=== PATIENT | male | born 1995 | race Caucasian/White ===

== ENCOUNTER 2021-08-09 19:16 | Emergency (ER) | payer BC ==
[~2021-08-09] VITALS: Ht 188 cm; Wt 81.6 kg
--- NOTE | 2021-08-09 19:55 | NUR ---
pt bibself c/o needing medical clearance for his sober living s/p "becoming unresponsive" during acupuncture. Pt aaox4 breathing evenly and unlabored. Per pt he has hx of sleep paralysis and fell asleep during acupunture and was unable to wake up quickly. Per pt, his sober living needed blood work done in order to allow him to return. Pt attached to monitor and pox. MD at bedside for eval. Will continue to monitor.
--- NOTE | 2021-08-09 21:05 | NUR ---
Patient discharged to home in stable condition. Written and verbal after care instructions given. Patient verbalizes understanding of instruction. Pt ambulatory with a steady gait
[2021-08-09 21:07] LABS: BASOPHILS % (AUTO) 0.4 % (0.0-2.0); HEMATOCRIT 41 % (39-51); HEMOGLOBIN 13.2 g/dL (13.5-17.5); LYMPHOCYTES # (AUTO) 2.9 K/uL (0.8-4.8); LYMPHOCYTES % (AUTO) 54.7 % (20.0-44.0); MEAN CORPUSCULAR HGB CONC 32 g/dl (31.0-36.0); MEAN CORPUSCULAR VOLUME 80 fL (80-96); MONOCYTES # (AUTO) 0.5 K/uL (0.1-1.30); MONOCYTES % (AUTO) 10.1 % (2.0-12.0); NEUTROPHILS # (AUTO) 1.7 K/uL (1.8-8.9); NEUTROPHILS % (AUTO) 31.8 % (43.0-81.0); PLATELET COUNT (AUTO) 315 K/uL (150-450); RED BLOOD CELL COUNT(AUTO) 5.07 MIL/uL (4.5-6.0); WHITE BLOOD COUNT (AUTO) 5.3 K/uL (4.3-11.0)
[2021-08-09 21:53] LABS: CALCIUM, SERUM 8.9 mg/dL (8.5-10.1); CREATININE 1.1 mg/dL (0.6-1.3); POTASSIUM 4.3 mmol/L (3.5-5.1)
[2021-08-09 21:59] LABS: ALBUMIN 4.3 g/dL (3.4-5.0); BILIRUBIN,TOTAL 0.2 mg/dL (0.2-1.0); TOTAL PROTEIN, SERUM 8.2 g/dL (6.4-8.2)
[2021-08-10 01:26] VITALS: BP 129/66
== END 2021-08-09 21:05 | disposition home or self-care (01) ==
LOC: ER 19:32
DX: Z02.89 Encounter for other administrative examinations (principal); Z98.890 Other specified postprocedural states
CPT/HCPCS: 36415; 80048-TC; 80076-TC; 85025-TC; G0480

== ENCOUNTER 2022-05-15 19:43 | Inpatient (IN) | payer BC ==
[~2022-05-15] VITALS: Ht 188 cm; Wt 70.8 kg
--- NOTE | 2022-05-15 19:56 | NUR ---
PATIENT GALLO 62 FROM A [facility] FOR METH USE. PATIENT IS A/O X 2-3, RR LABORED, NO SOB NOTED. PATIENT TAKEN TO ER BED 13. PATIENT PLACED IN CARDIAC AND POX MONITORS. SITTER AT BEDSIDE. WILL CONTINUE TO MONITOR.
--- NOTE | 2022-05-15 19:57 | NUR ---
[facility] AT PT'S BEDSIDE
[2022-05-15] MEDS ORDERED: LORAZEPAM INJ 2 MG/ML VIAL IM ONE (20:00)
[2022-05-15] MEDS ORDERED: LORAZEPAM INJ 2 MG/ML VIAL ONE (20:07)
--- NOTE | 2022-05-15 20:20 | NUR ---
LAB AT BEDSIDE
[2022-05-15 20:25] LABS: BASOPHILS % (AUTO) 0.1 % (0.0-2.0); HEMATOCRIT 39 % (39-51); HEMOGLOBIN 12.8 g/dL (13.5-17.5); LYMPHOCYTES # (AUTO) 1.6 K/uL (0.8-4.8); LYMPHOCYTES % (AUTO) 14.2 % (20.0-44.0); MEAN CORPUSCULAR HGB CONC 33 g/dl (31.0-36.0); MEAN CORPUSCULAR VOLUME 77 fL (80-96); MONOCYTES % (AUTO) 8.7 % (2.0-12.0); NEUTROPHILS # (AUTO) 8.5 K/uL (1.8-8.9); PLATELET COUNT (AUTO) 234 K/uL (150-450); RED BLOOD CELL COUNT(AUTO) 5.12 MIL/uL (4.5-6.0)
[2022-05-15 20:40] LABS: CALCIUM, SERUM 9.7 mg/dL (8.5-10.1); CARBON DIOXIDE 18 mmol/L (21-32); CHLORIDE 100 mmol/L (98-107); CREATININE 2.7 mg/dL (0.6-1.3); GLUCOSE 128 mg/dL (74-106); POTASSIUM 4.3 mmol/L (3.5-5.1); SODIUM SERUM 139 mmol/L (136-145); UREA NITROGEN, BLOOD 46 mg/dL (7-18)
[2022-05-15 20:46] LABS: ALANINE AMINOTRANSFERASE 28 U/L (12-78); ALBUMIN 4.9 g/dL (3.4-5.0); ALKALINE PHOSPHATASE 92 U/L (46-116); ASPARTATE AMINOTRANSFERASE 33 U/L (15-37); BILIRUBIN,DIRECT 0.2 mg/dL (0.0-0.2); TOTAL PROTEIN, SERUM 9.1 g/dL (6.4-8.2)
[2022-05-15 20:47] LABS: ACETAMINOPHEN < 2 ug/ml (10-30); ALCOHOL, BLOOD < 3 mg/dL (0-0)
--- NOTE | 2022-05-15 21:21 | NUR ---
NO URINE OUTPUT; WILL TRY AGAIN LATER
[2022-05-16] MEDS ORDERED: IV NS 0.9% 1,000 ML IV ONE (01:00)
[2022-05-16] MEDS ORDERED: LORAZEPAM INJ 2 MG/ML VIAL IM ONE (01:00)
[2022-05-16] MEDS ORDERED: HALOPERIDOL LACTATE INJ 5 MG/ML VIAL IM ONE (01:00)
[2022-05-16] MEDS ORDERED: diphenhydrAMINE HCL 50 MG/ML VIAL IM ONE (01:00)
[2022-05-16] MEDS ORDERED: LORAZEPAM INJ 2 MG/ML VIAL ONE (01:03)
[2022-05-16] MEDS ORDERED: diphenhydrAMINE HCL 50 MG/ML VIAL ONE (01:03)
[2022-05-16] MEDS ORDERED: HALOPERIDOL LACTATE INJ 5 MG/ML VIAL ONE (01:03)
[2022-05-16] MEDS ORDERED: ONDANSETRON HCL/PF 4 MG/2 ML VIAL IVP PRN (01:30)
[2022-05-16] MEDS ORDERED: TEMAZEPAM 15 MG CAPSULE PO PRN (01:30)
[2022-05-16] MEDS ORDERED: MORPHINE SULFATE INJ 2 MG/ML DISP.SYRIN IV PRN (01:30)
[2022-05-16] MEDS ORDERED: HYDROCODONE/APAP 5/325MG TABLET PO PRN (01:30)
[2022-05-16] MEDS ORDERED: ACETAMINOPHEN 325 MG TABLET PO PRN (01:30)
[2022-05-16] MEDS ORDERED: MAGNESIUM HYDROXIDE 30 ML UDC PO PRN (01:30)
[2022-05-16] MEDS ORDERED: Z GUARD REMEDY 4 OZ OINT TP PRN (01:30)
[2022-05-16] MEDS ORDERED: MAG HYDROX/AL HYDROX/SIMETH 30 ML UDC PO PRN (01:30)
--- NOTE | 2022-05-16 02:58 | NUR ---
URINE COLLECTED AND SENT TO LAB.
[2022-05-16 03:40] LABS: BILIRUBIN,URINE SMALL (NEGATIVE); COLOR,URINE YELLOW (YELLOW); LEUKOCYTE ESTERASE ,URINE NEGATIVE (NEGATIVE); NITRITE, URINE NEGATIVE (NEGATIVE); PH,URINE 5.5 (5.0-8.0); PROTEIN,URINE NEGATIVE (NEGATIVE); UGLUCOSE NEGATIVE (NEGATIVE); UROBILINOGEN,URINE 0.2 EU/dL (0.2)
--- NOTE | 2022-05-16 06:32 | NUR ---
[facility] SWAB COLLECTED AND SENT TO LAB. PATIENT'S BELONGINGS LIST DONE.
--- NOTE | 2022-05-16 06:33 | NUR ---
REPORT GIVEN TO CHARGE NURSE
--- NOTE | 2022-05-16 07:23 | NUR ---
PATIENT TRANSFERRED UNDER ACLS
--- NOTE | 2022-05-16 07:25 | NUR ---
RN NOTES RECEIVED PATIENT FROM EMERGENCY DEPT. TRANSFERRED VIA GURNEY. ON RA WITH O2 SAT OF 99%. VSS. SKIN CLEAR AND INTACT. R AC G#20 INTACT AND PATENT. PATIENT SLEEPING AT THIS TIME, RESPONDS TO VERBAL AND TACTILE STIMULI. A/O X3 IN AND OUT OF SLEEP. NO COMPLAINT OF PAIN VERBALIZED AT THIS TIME. SAFETY AND ASPIRATION PRECAUTIONS IN PLACE. CALL LIGHT WITHIN REACH. WILL CONTINUE TO MONITOR PATIENT.
[2022-05-16] MEDS: PANTOPRAZOLE 40 MG TABLET.DR PO SCH (07:30)
--- NOTE | 2022-05-16 08:15 | NUR ---
RN NOTES PATIENT IN AND OUT OF SLEEP. UNABLE TO TAKE PO MEDICATION AT THIS TIME. WILL CONTINUE TO MONITOR
[2022-05-16 09:30] VITALS: BP_SYST 114; BP_SYST 130; BP_DIAS 78; BP_DIAS 89
[2022-05-16] MEDS: IV NS 0.9% 1,000 ML IV PRN ×2 (10:57→18:59)
[2022-05-16 16:00] VITALS: BP 138/87
[2022-05-16] MEDS: LORAZEPAM INJ 2 MG/ML VIAL IV PRN (16:30)
--- NOTE | 2022-05-16 18:50 | NUR ---
RN NOTES PATIENT IN BED, AWAKE. A/O X3. NO COMPLAINTS AT THIS TIME. ON RA WITH NO S/SX OF RESP DISTRESS NOTED. R AC G#20 INTACT AND PATENT WITH NS FLUID RUNNING AT 125ML/HR. SAFETY PRECAUTIONS MAINTAINED. ALL ORDERS CARRIED OUT AND MEDS GIVEN. WILL ENDORSE TO THE OPERATIONS ARCHITECT NURSE FOR [facility]ENDY
--- NOTE | 2022-05-16 19:47 | NUR ---
MS RN OPENING NOTE RECEIVED PATIENT IN BED, A/OX3-4. NO S/S OF APPARENT DISTRESS IN ROOM AIR. NO C/O PAIN AT THIS TIME. IV NS RUNNING @125MLS/HR. ORIENTED AND ENCOURAGED WITHE THE USE OF CALL LIGHT. SAFETY IN PLACE. WILL CONTINUE WITH PLAN OF CARE FOR PATIENT.
[2022-05-16 20:00] VITALS: BP 123/78
[2022-05-17] MEDS: LORAZEPAM INJ 2 MG/ML VIAL IV PRN ×2 (03:04→09:10)
[2022-05-17] MEDS: IV NS 0.9% 1,000 ML IV PRN (05:36)
[2022-05-17 06:32] LABS: BASOPHILS % (AUTO) 0.2 % (0.0-2.0); HEMATOCRIT 32 % (39-51); HEMOGLOBIN 10.7 g/dL (13.5-17.5); LYMPHOCYTES # (AUTO) 1.8 K/uL (0.8-4.8); LYMPHOCYTES % (AUTO) 38.4 % (20.0-44.0); MEAN CORPUSCULAR HGB CONC 34 g/dl (31.0-36.0); MEAN CORPUSCULAR VOLUME 76 fL (80-96); MONOCYTES # (AUTO) 0.6 K/uL (0.1-1.30); MONOCYTES % (AUTO) 13.3 % (2.0-12.0); NEUTROPHILS # (AUTO) 2.1 K/uL (1.8-8.9); NEUTROPHILS % (AUTO) 46.1 % (43.0-81.0); PLATELET COUNT (AUTO) 151 K/uL (150-450); RED BLOOD CELL COUNT(AUTO) 4.18 MIL/uL (4.5-6.0); WHITE BLOOD COUNT (AUTO) 4.6 K/uL (4.3-11.0)
--- NOTE | 2022-05-17 06:42 | NUR ---
MS RN CLOSING NOTE PATIENT IN BED WITH EYES CLOSED, EASY TO AROUSE. NO S/S OF APPARENT DISTRESS IN ROOM AIR. NO C/O PAIN AT THIS TIME. IV NS RUNNING @125MLS/HR. NEEDS ATTENDED. SAFETY KEPT IN PLACE THE WHOLE SHIFT. WILL ENDORSE TO MORNING SHIFT RN FOR CONTINUITY OF CARE.
[2022-05-17] MEDS: PANTOPRAZOLE 40 MG TABLET.DR PO SCH (07:52)
[2022-05-17 08:00] VITALS: BP 135/80
[2022-05-17 09:00] LABS: CALCIUM, SERUM 8.5 mg/dL (8.5-10.1); CREATININE 0.7 mg/dL (0.6-1.3); PHOSPHORUS 2.2 mg/dL (2.5-4.9); POTASSIUM 4.1 mmol/L (3.5-5.1)
--- NOTE | 2022-05-17 14:26 | NUR ---
PATIENT A/O X3. ABLE TO MAKE NEEDS KNOWN. ON ROOM AIR SATURATING WELL. PATIENT IS CLEARED FOR DISCHARGE. ID WRISTBAND AND IV ACCESS WERE REMOVED. DISCHARGE INSTRUCTIONS AND HEALTH TEACHINGS GIVEN, PT VERBALIZES UNDERSTANDING. HE IS GOING TO [facility]. PICKED UP BY THE FACILITY PERSONNEL. VAPE WAS HANDED TO THE PATIENT.
== END 2022-05-17 14:56 | disposition home or self-care (01) | DRG 682 ==
LOC: ER 19:44 → TRANSITION 05-16 03:51 → MED 05-16 05:52
PROVIDERS: ADMIT Nurse Practitioner Acute Care; ATTEND Nurse Practitioner Acute Care
DX: N17.0 Acute kidney failure with tubular necrosis (principal); G92.8 Other toxic encephalopathy; M62.82 Rhabdomyolysis; F13.20 Sedative, hypnotic or anxiolytic dependence, uncomplicated; E86.0 Dehydration; F15.10 Other stimulant abuse, uncomplicated; Z20.822 Contact with and (suspected) exposure to COVID-19
CPT/HCPCS: 36415; 76770-TC; 80048-TC; 80076-TC; 82550-TC; 82553; 83735-TC; 84100-TC; 85025-TC; 87081-TC; C9803; G0378; G0480; J1200; J1630; J2060; J2270; J2405; J7030